=== PATIENT | female | born 1960 | race Caucasian/White ===

== ENCOUNTER 2021-03-29 08:15 | Emergency (ER) | payer OTHER ==
[~2021-03-29 08:15] MED LIST: K-DUR TAB 10 M10 MEQ PO; KEFLEX CAP 500500 MG PO; NORCO 5-325 TA1 EACH PO; ZOFRAN4 MG PO
[2021-03-29] MEDS ORDERED: HYDROCODON-ACE1 EAC4 PO (09:34)
== END 2021-03-29 09:55 | disposition home or self-care (01) ==
LOC: ER1 08:15
DX: S93.402A Sprain of unspecified ligament of left ankle, initial encounter (principal); I10 Essential (primary) hypertension; I25.10 Atherosclerotic heart disease of native coronary artery without angina pectoris; Z90.49 Acquired absence of other specified parts of digestive tract; W19.XXXA Unspecified fall, initial encounter
CPT/HCPCS: 73590; 73610; 73630; 99284